=== PATIENT | male | born 1970 | race Caucasian/White ===

== ENCOUNTER 2019-06-13 14:05 | Day surgery (SDC) | payer OTHER ==
[~2019-06-13] VITALS: Ht 170.2 cm; Wt 104.3 kg
[~2019-06-13 14:05] MED LIST: BACITRACIN 50,000 UNIT in IV NORMAL SALINE 500ML BAG 500 ML IRR ONE; CHLORHEXIDINE 0.12% 15 ML MOUTHWASH. SWSP PRN; HYDROmorphone 2 MG/ML VIAL IV PRN; IV RINGERS,LACTATED 1000ML 1,000 ML IV SCH; LIDOCAINE 1% PF 2 ML VIAL. ID PRN; MORPHINE SULFATE 2 MG/ML VIAL. IV PRN; ONDANSETRON PF 4 MG/2 ML VIAL. IV PRN; PROCHLORPERAZINE 10 MG/2 ML VIAL. IV PRN; fentaNYL PF VIAL 100 MCG/2 ML VIAL IV PRN
[2019-06-13] MEDS ORDERED: LISI-334 PO (14:39)
[2019-06-13] MEDS ORDERED: TRAZ-86 PO (14:41)
[2019-06-13] MEDS ORDERED: FLUO40CA2 PO (14:41)
[2019-06-13] MEDS ORDERED: ARIP15TA3 PO (14:42)
[2019-06-13] MEDS ORDERED: GELATIN SPONGE SIZE 4 SPONGE. TP ONE ×3 (14:45→17:20)
[2019-06-13] MEDS ORDERED: GELATIN SPONGE SIZE 12-7MM SPONGE. TP ONE (14:45)
[2019-06-13] MEDS ORDERED: ceFAZolin 2GM PREMIX 2 GM/50 ML BAG IV ONE (15:00)
[2019-06-13] MEDS ORDERED: CHLORHEXIDINE 0.12% 15 ML MOUTHWASH. ONE (15:06)
[2019-06-13] MEDS ORDERED: BUPIVAC MPF-EPI 0.5%-1:200000 30 ML VIAL. ONE (15:06)
[2019-06-13] MEDS ORDERED: PROPOFOL 20 ML IV ONE (15:33)
[2019-06-13] MEDS ORDERED: LIDOCAINE 2% PF 5 ML VIAL. ONE (15:33)
[2019-06-13] MEDS ORDERED: ONDANSETRON PF 4 MG/2 ML VIAL. ONE ×2 (15:33→18:13)
[2019-06-13] MEDS ORDERED: FAMOTIDINE 20 MG/2 ML VIAL ONE (15:33)
[2019-06-13] MEDS ORDERED: MIDAZOLAM HCL/PF 2 MG/2 ML VIAL. ONE (15:33)
[2019-06-13] MEDS ORDERED: fentaNYL PF VIAL 100 MCG/2 ML VIAL ONE ×2 (15:33→17:38)
[2019-06-13] MEDS ORDERED: DEXAMETHASONE SOD PHOS 4 MG/ML VIAL ONE (15:33)
[2019-06-13] MEDS ORDERED: SUCCINYLCHOLINE 200 MG/10 ML VIAL. ONE (16:03)
[2019-06-13] MEDS ORDERED: BUPIVAC MPF-EPI 0.5%-1:200000 30 ML VIAL. INJ ONE (17:15)
[2019-06-13] MEDS ORDERED: CHLORHEXIDINE 0.12% 15 ML MOUTHWASH. SWSP ONE (17:25)
--- NOTE | 2019-06-13 18:40 | PDOC4 ---
OPERATIVE NOTE Date: Date: Jun 13, 2019 Pre-Op Diagnosis: HTN Anxiety Caries non restorable teeth 1,3,5,6,9,10,11,12,17,19,20,21,22,23,24,25,26,27,28,29,30,32 Post-Op Diagnosis: same Procedure Performed: extraction of carious non restorable teeth 1,3,5,6,9,10,11,12,17,19,2 0,21,22,23,24,25,26,27,28,29,30,32 4 quadrants of alveoloplasty UR, UL, LL, LR Surgeon: noman Anesthesia Type: d Blood Loss: 50 Specimans Obtained: teeth disposed of in OR Findings: see dictation Complications: none Operative Note: see dictation sx ext Caries non restorable teeth 1,3,5,6,9,10,11,12,17,19,20,21,22,23,24,25,26,27,28,29,30,32 4 quad DILCIA Hackett DMD Jun 13, 2019 18:40
--- NOTE | 2019-06-13 19:41 | OP ---
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 ATTENDING PHYSICIAN: Austin Bates DMD PREOPERATIVE DIAGNOSES: Hypertension, anxiety, caries, nonrestorable teeth numbers 1 3, 5, 6, 9, 10, 11, 12, 17, 19, 21, 22, 23, 24, 25, 26, 27, 28, 29, 30 and 32. POSTOPERATIVE DIAGNOSES: Hypertension, anxiety, caries, nonrestorable teeth numbers 1 3, 5, 6, 9, 10, 11, 12, 17, 19, 21, 22, 23, 24, 25, 26, 27, 28, 29, 30 and 32. PROCEDURE PERFORMED: Surgical removal of all aforementioned teeth 1 3, 5, 6, 9, 10, 11, 12, 17, 19, 21, 22, 23, 24, 25, 26, 27, 28, 29, 30 and 32 and 4 quadrants of alveoloplasty upper right, upper left, lower right and lower left. BRIEF HISTORY: The patient was referred to our clinic by the [facility] for extraction of nonrestorable dentition. Considering his obesity, obstructive sleep apnea propensity, hypertension, and anxiety, we escalated the case to be treated in the OR. History and physical was performed in our clinic. The patient was consented for surgery and surgery was scheduled. ESTIMATED BLOOD LOSS: 50 mL. DRAINS PLACED: None. SPECIMEN SENT: None. Teeth were disposed off in the OR. COMPLICATIONS: None noted at the time of surgery. OPERATIVE DESCRIPTION: After the history and physical was updated in the preoperative holding area, the patient was transported by the Anesthesia service to the operating suite, placed in the supine position. General anesthesia was induced. An oral intubation was performed. The tube was secured to the upper left. A timeout was initiated and performed. A moistened throat pack was placed. Peridex was used to clean the mouth. The patient was prepped and draped in normal sterile fashion. Local anesthesia in the form of 0.5% Marcaine, 1:200,000 epinephrine was administered into the proposed surgical areas. An additional 10 mL for a total of 30 mL were administered at the culmination of the procedure. Surgery began with placement of a bite block and a 15 blade and a full thickness mucoperiosteal flap was reflected upper right, upper left, lower right, lower left. All teeth were then luxated, elevated and extracted, including 1 3, 5, 6, 9, 10, 11, 12, 17, 19, 21, 22, 23, 24, 25, 26, 27, 28, 29, 30 and 32. A 5 x 6 mm fenestration to the upper right maxillary sinus was noted at tooth #3. The membrane was not perforated. There was simply no bone between the root and the floor of the sinus. Alveoloplasty in all 4 quadrants, upper right, upper left, lower right and lower left was performed with rongeurs and all bony undercuts were removed and smoothed and sites were then lavaged with copious normal sterile saline. Each extraction site was curetted with curettage and copious normal sterile saline irrigation. Gelfoam was placed in extraction sites in all 4 quadrants and were oversewn with 3-0 chromic gut sutures in a running locked fashion. Care was taken to place additional sutures over the upper right sinus and the patient was placed on sinus precautions with no smoking, no sneezing, and no straws for 2 weeks. The oral cavity was then lavaged and suctioned. The moistened throat pack was removed. An OG was passed and stomach was decompressed. The patient was then returned to care of Anesthesia where he was awakened and extubated and transported to the PACU in stable condition. AUSTIN BATES DMD DR: Madonna JOB#: [id number] / [id number]
[2019-06-13 20:36] VITALS: BP 157/96
== END 2019-06-13 20:51 | disposition home or self-care (01) ==
LOC: SURG 14:05
PROVIDERS: ATTEND Dentist Oral and Maxillofacial Surgery
DX: K02.9 Dental caries, unspecified (principal); I10 Essential (primary) hypertension; F41.9 Anxiety disorder, unspecified
CPT/HCPCS: 41874; A7015; J0330; J0696; J1100; J2001; J2250; J2405; J2704; J3010; J3490; J7040; J7120